=== PATIENT | male | born 1955 | race Caucasian/White ===

== ENCOUNTER → 2024-12-13 08:50 | Outpatient (REF) | payer MEDICARE, OTHER, SELFPAY | LOC: PAVMRI 08:50 | PROVIDERS: ATTENDING PHYSICIAN Specialist; FAMILY PHYSICIAN Physician Assistant | DX: M25.551 Pain in right hip (principal); M54.16 Radiculopathy, lumbar region | CPT/HCPCS: 72148; 73721 ==